=== PATIENT | female | born 1970 | race Caucasian/White ===

== ENCOUNTER 2020-07-13 21:28 | Emergency (ER) | payer OTHER ==
[~2020-07-13] VITALS: Ht 167.6 cm; Wt 68.0 kg
[~2020-07-13 21:28] MED LIST: AZO; CIPR500 PO; CLON1 PO; HYDACE5 PO; NORT25 PO; PROM25 PO
[2020-07-13] MEDS ORDERED: CLON.5 PO (21:58)
[2020-07-13] MEDS ORDERED: GABA300 PO (21:59)
[2020-07-13] MEDS ORDERED: PROP10 PO (22:01)
[2020-07-13] MEDS ORDERED: CLIMARA1 EACH TOP (22:01)
[2020-07-13] MEDS ORDERED: CITA20 PO (22:01)
[2020-07-13 22:16] LABS: Anion Gap 7 mmol/L (6-16); Blood Urea Nitrogen 15 mg/dL (8-24); Bun/Creatinine Ratio 18.7 (12.0-20.0); CO2, Blood 30 mmol/L (21-32); Calcium, Blood 9.6 mg/dL (8.5-10.1); Chloride, Blood 104 mmol/L (98-108); Ethanol (Alcohol), Blood, Med 30 mg/dL; Glomerular Filtration Rate >60 (60-); Glucose, Blood 148 mg/dL (70-99); Potassium, Blood 3.4 mmol/L (3.5-5.5); Sodium, Blood 141 mmol/L (136-145); Troponin I <0.015 ng/mL (0.000-0.040)
== END 2020-07-13 23:55 | disposition home or self-care (01) ==
LOC: ER 21:28
PROVIDERS: Student in an Organized Health Care Education/Training Program
DX: R55 Syncope and collapse (principal); F41.9 Anxiety disorder, unspecified; Z88.5 Allergy status to narcotic agent; Z88.8 Allergy status to other drugs, medicaments and biological substances; Z79.899 Other long term (current) drug therapy; Z87.891 Personal history of nicotine dependence
CPT/HCPCS: 36415; 73000; 80048; 84484; 93005; 93010; 99284-25; G0480